=== PATIENT | female | born 1995 | race American Indian/Alaskan Native ===

== ENCOUNTER 2018-04-22 17:10 | Emergency (ER) | payer SELFPAY ==
[2018-04-22 17:17] VITALS: BP 107/64
[2018-04-22 18:01] LABS: Hematocrit 36.2 % (30.3-42.9); Hemoglobin 12.5 gm/dl (10.1-14.3); Mean Corpuscular HGB Conc 35 % (30-34); Mean Corpuscular Hemoglobin 32 pg (28-32); Mean Corpuscular Volume 94 fl (79-97); Platelet Count 205 K/mm3 (140-440); Red Blood Count 3.86 M/mm3 (3.65-5.03); Red Cell Distribution Width 13.5 % (13.2-15.2)
[2018-04-22 18:21] LABS: BUN/Creatinine Ratio 14; Blood Urea Nitrogen 7 mg/dL (7-17); Calcium 9.3 mg/dL (8.4-10.2); Hemolysis Index 13
--- NOTE | 2018-04-22 18:43 | Ultrasound Report ---
FINAL REPORT EXAM: US OB > = 14 WEEKS FETUS HISTORY: spotting, cramping, 18 weeks preg TECHNIQUE: Ultrasound obstetrical transabdominal PRIORS: No prior studies are submitted for comparison FINDINGS: Single live intrauterine gestation present. cardiac activity is present with heart rate of 155 beats per minute Cervical length 3.2 centimeters biometric measurements were obtained Biparietal diameter 17 weeks 3 days Head circumference 17 weeks 1 day Abdominal circumference 17 weeks 1 day Femur length 17 weeks 0 days Based on today's exam estimated gestational age is 17 weeks 1 day with estimated date of delivery September 29, 2018 Placenta is posterior and grade 0 IMPRESSION: Single live intrauterine gestation estimated at 17 weeks 1 day
== END 2018-04-22 20:00 | disposition left against medical advice (07) ==
LOC: ED 17:10
DX: O26.852 Spotting complicating pregnancy, second trimester (principal); Z3A.18 18 weeks gestation of pregnancy; Z53.21 Procedure and treatment not carried out due to patient leaving prior to being seen by health care provider
CPT/HCPCS: 36415; 76805; 80048; 84702; 85027; 86900; 86901

== ENCOUNTER 2018-08-30 16:57 | Outpatient (CLI) | payer SELFPAY ==
[2018-08-30] MEDS ORDERED: TYLENOL PO ONE (19:07)
[2018-08-30 19:16] LABS: Bacteria,Urine 1+ /HPF (Negative); Bilirubin,Urine NEG (Negative); Blood,Urine NEG (Negative); Color,Urine Yellow (Yellow); Mucus,Urine 1+ /HPF
[2018-08-30] MEDS ORDERED: LACTATED RINGERS 500 ML IV ONE (20:00)
== END 2018-08-30 19:45 | disposition home or self-care (01) ==
LOC: TRG 16:57
PROVIDERS: ATTEND Obstetrics & Gynecology
DX: O47.03 False labor before 37 completed weeks of gestation, third trimester (principal); Z3A.35 35 weeks gestation of pregnancy
CPT/HCPCS: 81001